=== PATIENT | female | born 1955 | race Caucasian/White ===

== ENCOUNTER 2024-06-08 13:44 | Outpatient (CLI) | payer MEDICARE, SELFPAY ==
[2024-06-08 14:04] LABS: Microscopic, Urine URINE MICROSCOPIC (MICROSCOPIC)
[2024-06-08 14:26] LABS: Appearance,Urine CLEAR (Clear); Bilirubin,Urine Negative (Negative); Blood, Urine Negative (Negative); Color,Urine YELLOW (Yellow); Glucose,Urine (UA) Negative (Negative); Ketones,Urine Negative (Negative); Leukocyte Esterase,Urine Negative (Negative); Nitrate,Urine Negative (Negative); Protein,Urine Negative (Negative); Urobilinogen,Urine 0.2 EU/dl (0.2)
[2024-06-08 14:49] LABS: RBC,Urine Occasional #/hpf (0-3)
[2024-06-08 15:08] LABS: Creatinine,Urine Random 39 mg/dL (Not Estab.)
[2024-06-08 17:08] LABS: Albumin Level 3.9 g/dl (3.5-5.0); Anion Gap 15.6 mEq/L (5-15); Blood Urea Nitrogen 27 mg/dl (7-17); Calcium 8.8 mg/dl (8.4-10.2); Carbon Dioxide 25 mmol/L (22.0-30.0); Chloride 106 mmol/L (98-107); Estimated Glomerular Filt Rate 25 ml/min (>60); GFR (African American) 30 ML/MIN (>60); Glucose 97 mg/dl (74-100); Phosphorous 3.6 mg/dl (2.5-4.5); Potassium 3.6 mmoL/L (3.5-5.1); Sodium 143 mmol/L (136-145); Uric Acid 4.1 mg/dl (2.5-6.2)
[2024-06-08 17:19] LABS: Intact Parathyroid Hormone 183.3 pg/mL (7.5-53.5)
== END 2024-06-08 23:59 | disposition home or self-care (01) ==
LOC: LAB 13:49
PROVIDERS: PCP Family Medicine; Visit Provider Internal Medicine Nephrology
DX: N18.4 Chronic kidney disease, stage 4 (severe) (principal); M10.9 Gout, unspecified
CPT/HCPCS: 36415; 80069; 81001; 82570; 83970; 84156; 84550